=== PATIENT | male | born 2000 | race Caucasian/White ===

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

== ENCOUNTER 2023-09-29 22:31 | Emergency (ER) | payer MEDICAID ==
[2023-09-29 22:43] VITALS: BP 139/92; PULSE 94
== END 2023-09-29 23:29 | disposition left against medical advice (07) ==
LOC: JP.ED 22:31
DX: Z53.21 Procedure and treatment not carried out due to patient leaving prior to being seen by health care provider (principal)

== ENCOUNTER 2023-10-07 18:46 | Emergency (ER) | payer MEDICAID ==
[2023-10-07] MEDS ORDERED: Sodium Chloride 0.9% 10 ML Syringe FLUSH PRN (19:27)
[2023-10-07 19:36] LABS: BASOPHILS ABSOLUTE AUTO 0.03 K/uL (0.00-0.10); BASOPHILS PERCENT AUTO 0.4 % (0.1-1.3); EOSINOPHILS ABSOLUTE AUTO 0.04 K/uL (0.00-0.40); EOSINOPHILS PERCENT AUTO 0.5 % (0.0-5.4); HEMATOCRIT 43.3 % (38.4-49.7); HEMOGLOBIN 15.4 g/dL (12.9-16.9); IMMATURE GRAN ABSOLUTE AUTO 0.05 K/uL (0.00-0.23); IMMATURE GRAN PERCENT AUTO 0.7 % (0.0-0.7); LYMPHOCYTES ABSOLUTE AUTO 0.98 K/uL (0.8-3.3); LYMPHOCYTES PERCENT AUTO 13.4 % (11.4-47.7); MEAN CORPUSCULAR HEMOGLOBIN 29.1 pg (31.6-35.5); MEAN CORPUSCULAR HGB CONC 35.6 g/dL (31.6-35.5); MEAN CORPUSCULAR VOLUME 81.7 fL (81.4-99.0); MONOCYTES ABSOLUTE AUTO 0.46 K/uL (0.20-0.90); MONOCYTES PERCENT AUTO 6.3 % (3.3-12.6); NEUTROPHILS ABSOLUTE AUTO 5.73 K/uL (1.0-7.6); NEUTROPHILS PERCENT AUTO 78.7 % (40.0-78.1); PLATELET COUNT,PLT 301 K/uL (130-375); WHITE BLOOD CELL COUNT,WBC 7.3 K/uL (3.2-11.0)
[2023-10-07 20:00] LABS: A/G RATIO 1.4 (1.2-2.2); ALANINE AMINOTRANSFERASE,ALT 25 U/L (12-78); ALBUMIN 4.3 g/dL (3.4-5.0); ALKALINE PHOSPHATASE 102 U/L (46-116); ASPARTATE AMNIOTRANSFERASE,AST 17 U/L (15-37); BILIRUBIN TOTAL 0.5 mg/dL (0.2-1.0); BLOOD UREA NITROGEN,BUN 14 mg/dL (7-18); CALCIUM 8.6 mg/dL (8.5-10.1); CARBON DIOXIDE,CO2 28 mmol/L (21-32); CHLORIDE,CL 104 mmol/L (100-108); CREATININE 1.1 mg/dL (0.8-1.3); EST CRCL DRUG DOSING (CG) 101.12 mL/min; ESTIMATED GFR 98 mL/min (>60); GLUCOSE RANDOM 105 mg/dL (74-106); POTASSIUM,K 3.7 mmol/L (3.6-5.2); PROTEIN TOTAL,TP 7.3 g/dL (6.4-8.2); SODIUM,NA 139 mmol/L (140-148)
[2023-10-07 20:14] LABS: APPEARANCE,URINE CLEAR (CLEAR); BILIRUBIN,URINE NEGATIVE (NEGATIVE); COLOR,URINE YELLOW (YELLOW); GLUCOSE,URINE NEGATIVE (NEGATIVE); KETONES,URINE TRACE mg/dL (NEGATIVE); LEUKOCYTE ESTERASE,URINE NEGATIVE (NEGATIVE); NITRITE,URINE NEGATIVE (NEGATIVE); OCCULT BLOOD,URINE NEGATIVE (NEGATIVE); PROTEIN,URINE TRACE mg/dL (NEGATIVE); UROBILINOGEN,URINE 0.2 EU/dL (0.2-1.0)
[2023-10-07 20:15] LABS: ANION GAP 10.7 mmol/L (5.0-14.0)
[2023-10-07 20:20] VITALS: BP 129/79; PULSE 95
[2023-10-07 20:27] LABS: AMPHETAMINES SCREEN, URINE NEGATIVE (NEGATIVE); BARBITURATE SCREEN,URINE NEGATIVE (NEGATIVE); BENZODIAZEPINES SCREEN,URINE NEGATIVE (NEGATIVE); METHADONE SCREEN, URINE NEGATIVE (NEGATIVE); METHAMPHETAMINES SCREEN, URINE NEGATIVE (NEGATIVE); OXYCODONE SCREEN,URINE NEGATIVE (NEGATIVE); PROPOXYPHENE SCREEN,URINE NEGATIVE (NEGATIVE); THC SCREEN,URINE 50 NG/ML NEGATIVE (NEGATIVE)
[2023-10-07 20:32] LABS: AMORPHOUS SEDIMENT,URINE NOT SEEN; BACTERIA,URINE NOT SEEN; EPITHELIAL CELLS,URINE NOT SEEN; MUCUS,URINE NOT SEEN; RBC,URINE 0-5 (0-5); WBC,URINE NOT SEEN (0-5)
== END 2023-10-07 20:57 | disposition home or self-care (01) ==
LOC: JP.ED 18:46
DX: I49.9 Cardiac arrhythmia, unspecified (principal); F17.210 Nicotine dependence, cigarettes, uncomplicated
CPT/HCPCS: 36415; 80053; 80305; 81001; 83735; 84443; 85025; 93005; 99285; J3490; 93010

== ENCOUNTER 2024-03-18 21:25 | Emergency (ER) | payer MEDICAID ==
[2024-03-18 21:32] VITALS: BP 138/87; PULSE 97
[2024-03-18] MEDS: Diphtheria,Pertussis(Acell),Tetanus Vaccine 0.5 ML Syringe IM ONE (22:17)
== END 2024-03-18 22:27 | disposition home or self-care (01) ==
LOC: JP.ED 21:25
DX: S69.91XA Unspecified injury of right wrist, hand and finger(s), initial encounter (principal); F17.210 Nicotine dependence, cigarettes, uncomplicated; Z23 Encounter for immunization; Z86.16 Personal history of COVID-19; W45.8XXA Other foreign body or object entering through skin, initial encounter
CPT/HCPCS: 90471; 90715; 99283; 99283-25

== ENCOUNTER 2024-06-16 06:40 | Emergency (ER) | payer OTHER ==
[2024-06-16 06:57] VITALS: BP 136/84; PULSE 78
[2024-06-16] MEDS: Ketorolac 30 MG/ML SDV IM ONE (07:56)
== END 2024-06-16 08:03 | disposition home or self-care (01) ==
LOC: JP.ED 06:40
DX: S22.000A Wedge compression fracture of unspecified thoracic vertebra, initial encounter for closed fracture (principal); Z86.16 Personal history of COVID-19; V87.7XXA Person injured in collision between other specified motor vehicles (traffic), initial encounter
CPT/HCPCS: 96372; 99283; J1885

== ENCOUNTER 2024-11-27 12:52 | Emergency (ER) | payer MEDICAID | END 2024-11-27 14:30 | disposition left against medical advice (07) | LOC: JP.ED 12:52 | DX: Z53.21 Procedure and treatment not carried out due to patient leaving prior to being seen by health care provider (principal) ==

== ENCOUNTER 2024-11-27 21:56 | Emergency (ER) | payer MEDICAID ==
[2024-11-27 22:03] VITALS: BP 154/59; PULSE 95
== END 2024-11-27 23:10 | disposition home or self-care (01) ==
LOC: JP.ED 21:56
DX: K02.62 Dental caries on smooth surface penetrating into dentin (principal); F17.210 Nicotine dependence, cigarettes, uncomplicated; Z86.16 Personal history of COVID-19
CPT/HCPCS: 99282

== ENCOUNTER 2025-07-21 14:20 | Emergency (ER) | payer MEDICAID ==
[2025-07-21 14:55] LABS: BASOPHILS ABSOLUTE AUTO 0.07 K/uL (0.00-0.10); BASOPHILS PERCENT AUTO 1.1 % (0.1-1.3); EOSINOPHILS ABSOLUTE AUTO 0.28 K/uL (0.00-0.40); EOSINOPHILS PERCENT AUTO 4.2 % (0.0-5.4); IMMATURE GRAN PERCENT AUTO 0.3 % (0.0-0.7); LYMPHOCYTES ABSOLUTE AUTO 2.02 K/uL (0.8-3.3); LYMPHOCYTES PERCENT AUTO 30.5 % (11.4-47.7); MONOCYTES ABSOLUTE AUTO 0.60 K/uL (0.20-0.90); MONOCYTES PERCENT AUTO 9.0 % (3.3-12.6); NEUTROPHILS ABSOLUTE AUTO 3.64 K/uL (1.0-7.6); NEUTROPHILS PERCENT AUTO 54.9 % (40.0-78.1); PLATELET COUNT,PLT 287 K/uL (130-375); RED BLOOD CELL COUNT 5.26 M/uL (4.14-5.76); WHITE BLOOD CELL COUNT,WBC 6.6 K/uL (3.2-11.0)
[2025-07-21 14:57] LABS: IMMATURE GRAN ABSOLUTE AUTO 0.02 K/uL (0.00-0.23)
[2025-07-21 16:41] LABS: TROPONIN I HIGH SENSITIVITY < 4.0 pg/mL (<=60.3)
[2025-07-21 17:13] VITALS: BP 110/75; PULSE 66
== END 2025-07-21 17:11 | disposition home or self-care (01) ==
LOC: JP.ED 14:20
DX: R07.89 Other chest pain (principal); Z86.16 Personal history of COVID-19
CPT/HCPCS: 36415; 71045; 71045-26; 80053; 84484; 85025; 93005; 99285